=== PATIENT | male | born 1980 | race Caucasian/White ===

== ENCOUNTER 2021-06-25 07:37 | Outpatient (CLI) | payer BC, SELFPAY ==
--- NOTE | ~2021-06-25 | US_ITS ---
EXAMINATION: US abdomen complete DATE: 06/25/2021 08:26 INDICATION: Other secondary thrombocytopenia TECHNIQUE: Multiple grayscale and Doppler ultrasound images of the abdomen were obtained. COMPARISON: None available FINDINGS: Bowel gas obscures visualization of the pancreas. The liver is normal with normal echogenic ity and echotexture. No surface nodularity. Normal hepatopetal flow in the main portal vein. The gall bladder is normal with no abnormal wall thickening, pericholecystic fluid or stones. The normal commo n bile duct measures 5 mm. There was no sonographic Jennings sign. The visualized portions of the aorta and inferior vena cava are normal. The right kidney measures 12.1 x 5.8 x 5.4 cm. The left kidney measures 12.7 x 5.4 x 5.6 cm. The kidn eys demonstrate normal parenchymal echogenicity. There is no hydronephrosis. The spleen is mildly enl arged and measures 15.5 cm. IMPRESSION: 1. Mild splenomegaly. Reviewed, dictated and finalized at location B. IMPRESSION: 1. Mild splenomegaly.
== END 2021-06-25 07:38 | disposition home or self-care (01) ==
PROVIDERS: PCP Internal Medicine; Visit Provider Internal Medicine Hematology & Oncology
DX: D69.59 Other secondary thrombocytopenia (principal)
CPT/HCPCS: 76700

== ENCOUNTER 2025-05-04 00:17 | Day surgery (SDC) | payer BC, SELFPAY ==
--- OUTSIDE RECORDS SUMMARY | 2025-04-04 01:44 | XMS_ITS | Clinical Summary ---
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 Between 3 and 6 drinks. Sex and Gender Information Value Date Recorded Sex Assigned at Not on file Legal Sex Male 1:36 PM CDT Gender Identity Not on file Sexual Orientation Not on file Last Filed Vital Signs Vital Sign Reading Time Taken Comments Blood Pressure 135/81 06/01/2021 1:35 PM CDT Pulse 72 06/01/2021 1:35 PM CDT Temperature 36.7 C (98 F) 06/01/2021 1:35 PM CDT Respiratory Rate - - Oxygen Saturation 96% 06/01/2021 1:35 PM CDT Inhaled Oxygen Concentration - - Weight 149.4 kg (329 lb 6.4 oz) 06/01/2021 1:35 PM CDT Height 185.4 cm (6' 1) 06/01/2021 1:35 PM CDT Body Mass Index 43.46 06/01/2021 1:35 PM CDT Plan of Treatment Health Maintenance Due Date Last Done Comments DTAP/TDAP/TD VACCINES (1 - Tdap) 1997 HEPATITIS B VACCINES (1 of 3 - 19+ 3-dose series) 1997 COLORECTAL SCREENING 2023 Colorectal Cancer Screening 2023 FIT-DNA Q 3 years 2023 FIT/FOBT Q 1 year 2023 Flex Sig/CT Colonography Q 5 years 2023 INFLUENZA VACCINE (#1) 2024 HPV VACCINES Aged Out No longer eligi ble based on patient's age to complete this topic Insurance [employer] BLUE ACCESS/TRUE BLUE PPO [employer] BLUE ACCESS/TRUE BLUE PPO Care Teams Application Packager Relationship Specialty Start Date End Date Bakari Holliday DO [address] [address] PCP - General Internal Medicine 06/01/21
--- OUTSIDE RECORDS SUMMARY | 2025-04-04 01:44 | XMS_ITS | Clinical Summary ---
Author Organization [facility] Address [address] [place] [address] Care Team Providers Care Suction Plate Roller Hand Name Role Phone Unavailable Primary Care Provider Unavailabl e Source Comments [facility],non-owned Affiliates and Associated Physician Practices is amultiple site organization consisting of ambulatory clinics and hospital sitesin [place], [place], [place] and [place]. This disclosure is being madepursuant to the Care Everywhere program and may not contain all information available regarding this patient. Last updated 18.[facility] Allergies Active Allergy Reactions Criticality Noted Date Comments Penicillins Anaphylaxis High 04/20/2021 Medications * Be aware that medications may not be up to date on this document. Alwaysverify current medications with the patient. predniSONE (DELTASONE) 20 MG tablet 3 tabs PO QD x 3 days, 2 tabs PO QD x 3 days, 1 tab PO QD x 3 days 18 tablet 04/20/2021 Active Active Problems No known active problems Social History Tobacco Use Types Packs/Day Years Used Date Smoking Tobacco: Never Assessed PHQ-2 Answer Date Recorded PHQ2 TOTAL SCORE 0 04/20/2021 Sex and Gender Information Value Date Recorded Sex Assigned at Not on file Legal Sex Male 3:13 PM CDT Gender Identity Not on file Sexual Orientation Not on file Last Filed Vital Signs Vital Sign Reading Time Taken Comments Blood Pressure 142/90 04/20/2021 4:43 PM CDT Pulse 80 04/20/2021 4:43 PM CDT Temperature 36.7 C (98 F) 04/20/2021 4:43 PM CDT Respiratory Rate 20 04/20/2021 4:43 PM CDT Oxygen Saturation - - Inhaled Oxygen Concentration - - Weight - - Height - - Body Mass Index - - Plan of Treatment Health Maintenance Due Date Last Done Comments GISSELL (AGES 45-75) - COL ON CA SCREENING 1978 COLON MONITORING 1978 COLONOSCOPY - COLON CA SCREENING 1978 CT COLONOGRAPHY - COLON CA SCREENING 1978 Colorectal Cancer Screening 1978 FIT - COLON CA SCREENING 1978 FLEX SIG - COLON CA SCREENING 1978 LIPID TESTING 1978 HIV SCREENING 1993 HEPATITIS C SCREENING 07/30/1996 DTAP/TDAP/TD VACCINES (1 - Tdap) 1997 HEPATITIS B VACCINE (1 of 3 - 19+ 3-dose series) 1997 COVID-19 VACCINE (3 - 2023-2 5 season) 2024 02/02/2021, 01/12/2021 DEPRESSION SCREENING 11/17/2024 INFLUENZA VACCINE (Season Ended) 2025 09/28/2020 ZOSTER VACCINE (1 of 2) 2028 HIB VACCINE Aged Out No longer eligi ble based on patient's age to complete this topic HPV VACCINE Aged Out No longer eligi ble based on patient's age to complete this topic MENINGOCOCCAL (Group B) VACCINE SHARED DECISION-MAKING Aged Out No longer eligible based on patient's age to complete this topic MENINGOCOCCAL GROUPS A/C/Y/W VACCINE Aged Out No longer eligible b ased on patient's age to complete this topic PNEUMOCOCCAL VACCINE Aged Out No long er eligible based on patient's age to complete this topic Insurance
--- OUTSIDE RECORDS SUMMARY | 2025-05-04 00:19 | XMS_ITS | Clinical Summary ---
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
--- OUTSIDE RECORDS SUMMARY | 2025-05-04 00:19 | XMS_ITS | Clinical Summary ---
Author Organization [facility] Address [address] [place] [address] Care Team Providers Care Fuel Manager Name Role Phone Unavailable Primary Care Provider Unavailabl e Source Comments [facility],non-owned Affiliates and Associated Physician Practices is amultiple site organization consisting of ambulatory clinics and hospital sitesin [place], [place], [place] and [place]. This disclosure is being madepursuant to the Care Everywhere program and may not contain all information available regarding this patient. Last updated 18.[facility] Allergies Active Allergy Reactions Criticality Noted Date [...]
[2025-05-04 07:40] VITALS: BP 132/90; PULSE 77; RESP 18; TEMP 36.3; O2SAT 97; BMI 34.9
[2025-05-04] MEDS: LACTATED RINGERS 1,000 ML 150 ML IV CONT (07:56)
--- NOTE | 2025-05-04 08:15 | P.PNAN_ITS ---
Anes - Initial Pre Proc Eval Procedure: Operation Date: 05/04/25 09:00 Proposed Procedures p Colonoscopy - Sai Garcia MD Date/Time: 05/04/25 08:15 Surgeon: Sai Garcia MD Pre Op Diagnosis: Encounter for screening for malignant neoplasm of Patient Data Age: 44 Gender: M Height: 1.85 m Weight: 120 kg Last Vital Signs Temp 97.3 F L 05/04/25 07:40 Pulse 77 05/04/25 07:40 Resp 18 05/04/25 07:40 BP 132/90 05/04/25 07:40 Pulse Ox 97 05/04/25 07:40 O2 Del Method Room Air 05/04/25 07:40 Allergies Allergy/AdvReac Type Severity Reaction Status Date / Time Penicillins Allergy Unknown Difficulty Verified 05/04/25 07:46 Swallowing Home Medications ?Medication ?Instructions ?Recorded ?Confirmed ?Type losartan 50 mg tablet 50 mg PO DAILY #90 tabs 10/12/24 05/04/25 Rx triamterene 37.5 1 tablet PO QAM #90 tabs 10/12/24 05/04/25 Rx mg-hydrochlorothiazide 25 mg tablet tirzepatide 15 mg/0.5 mL 15 mg (0.5 mL) subcut WEEKLY #2 mL 11/30/24 04/27/25 Rx subcutaneous pen injector (Mounjaro) Patient hx anesthesia problems: none Family hx anesthesia problems: none Results Review: All pre-operative results and documents have been reviewed as part of the pre- operative evaluation. [facility] Family History Family History Mother Diabetes mellitus Patient's mother is in good health Social History Social History Social History: Caffeine-some Smoking status: Never smoker Alcohol intake: current Alcohol use details: rarely Substance use type: does not use Lack of Transportation: No Lack of Food: Never True Current Housing: I Have Housing Concerned About Future Housing: No Difficulty Paying Gas/Electric Bills: No Difficulty Paying for Meds: No Currently Unemployed: No Education: High School Diploma/GED Difficulty w/ Childcare or Family Care: No Living arrangements: with family Additional living arrangements comments: Anes - Eval Final PreProcedure Day of Procedure 05/04/25 08:15 Patient weight: normal Heart: regular rate and rhythm Lungs: clear to auscultation Airway: Mallampati scale class II Neurological: alert and oriented Last oral intake: >/= 8 hours ASA classification: II Emergent: no Anesthetic plan: proceed Anesthesia type and monitoring: general GIVS and standard monitoring Results Review: All pre-operative results and documents have been reviewed as part of the pre- operative evaluation. Informed Consent: The patient's anesthetic plan and its attendant risks and benefits were discussed with the patient/family/POA. Questions were solicited and answers provided to the satisfaction of the patient/family/POA.
--- NOTE | 2025-05-04 08:46 | PM.HPGS ---
History of Present Illness History of Present Illness Consent: Risks, benefits, and alternatives have been discussed and questions answered. Patient agrees to proceed with procedure. Chief complaint: Encounter for screening for malignant neoplasm of Narrative: Sterling Reese is a 44 year old male here for first screening colonoscopy Review of Systems Review of Systems: All systems reviewed & are unremarkable except as noted in HPI and below PMFSH Family History Family History Mother Diabetes mellitus Patient's mother is in good health Social History Social History Social History: Caffeine-some Smoking status: Never smoker Alcohol intake: current Alcohol use details: rarely Substance use type: does not use Lack of Transportation: No Lack of Food: Never True Current Housing: I Have Housing Concerned About Future Housing: No Difficulty Paying Gas/Electric Bills: No Difficulty Paying for Meds: No Currently Unemployed: No Education: High School Diploma/GED Difficulty w/ Childcare or Family Care: No Living arrangements: with family Additional living arrangements comments: Meds Home Medications and Allergies Home Medications ?Medication ?Instructions ?Recorded ?Confirmed ?Type losartan 50 mg tablet 50 mg PO DAILY #90 tabs 10/12/24 05/04/25 Rx triamterene 37.5 1 tablet PO QAM #90 tabs 10/12/24 05/04/25 Rx mg-hydrochlorothiazide 25 mg tablet tirzepatide 15 mg/0.5 mL 15 mg (0.5 mL) subcut WEEKLY #2 mL 11/30/24 04/27/25 Rx subcutaneous pen injector (Lambertounjaro) Allergies Allergy/AdvReac Type Severity Reaction Status Date / Time Penicillins Allergy Unknown Difficulty Verified 05/04/25 07:46 Swallowing Vital Signs Vital Signs - 24 hr 05/04/25 07:40 Temperature 97.3 F L Pulse Rate 77 Respiratory Rate 18 Blood Pressure 132/90 Pulse Oximetry 97 Oxygen Delivery Room Air Exam Const: General: comfortable and no acute distress HENMT: Face/Nose/Sinus: Normal nares present Eyes: General: appearance normal, both eyes and all related structures Neck: Neck: no JVD Resp: Auscultation: clear to auscultation bilaterally Cardio: Rate: regular rate Rhythm: regular rhythm GI: Inspection: non-distended GI Palp: Yes Soft to palpation Skin: General skin exam: normal color Neuro: Speech: normal speech Extrem: General: normal to inspection Psych: Mental Status: mental status grossly normal Assessment and Plan Assessment and plan (1) Screening for colon cancer: Code(s): Z12.11 - Encounter for screening for malignant neoplasm of colon Status: Acute Assessment and Plan: colonoscopy
--- NOTE | 2025-05-04 09:00 | S_PTH ---
PATIENT: Sterling Reese LOC: [facility]#:[id number] AGE/SX: 44/M ROOM: RE05/04/[address]: Sai Garcia MD : 1980 BED: DIS: 05/04/2025 SPEC #: [id number] RECD: 05/04/25 09:45 STATUS: HERMILA REQ #: [id number] RODDY: 05/04/25 09:[address]: Sai Garcia DEPT: [facility] RECD BY: Cira Rader ENTERED: 05/04/25 09:45 SP TYPE: Surgical OTHR DR: Bakari oHlliday DO Tissues: A - Colon Polypectomy Procedures: Hematoxylin and Eosin Stain Gross and Microscopic Level 4
[2025-05-04 09:04] VITALS: BP 107/56; PULSE 63; RESP 17; O2SAT 97
[2025-05-04 09:14] VITALS: BP 119/75; PULSE 60; RESP 12; O2SAT 99
[2025-05-04 09:24] VITALS: BP 123/86; PULSE 60; RESP 17; O2SAT 99
== END 2025-05-04 09:30 | disposition home or self-care (01) ==
PROVIDERS: PCP Internal Medicine; Referring Provider Nurse Practitioner; Visit Provider Internal Medicine Gastroenterology
PROC: 0DJD8ZZ Inspection of Lower Intestinal Tract, Via Natural or Artificial Opening Endoscopic (ICD-10-PCS; CPT 45378; principal; 2025-05-04 09:00)
DX: Z12.11 Encounter for screening for malignant neoplasm of colon (principal); D12.3 Benign neoplasm of transverse colon; K64.8 Other hemorrhoids; E11.9 Type 2 diabetes mellitus without complications; Z79.85 Long-term (current) use of injectable non-insulin antidiabetic drugs
CPT/HCPCS: 45380; 88305; J2003; J2704; J7120